=== PATIENT | female | born 1965 | race Caucasian/White ===

== ENCOUNTER 2016-10-06 09:51 | Emergency (ER) | payer OTHER ==
[2016-10-06 09:56] VITALS: BP 138/90; PULSE 95; TEMP 98.1; BMI 26.6
[2016-10-06] MEDS ORDERED: IBUPROFEN 400 MG TABLET (FP) PO ONE ×2 (11:25→11:27)
--- NOTE | 2016-10-06 11:31 | PDOC ---
History of Present Illness - General Chief Complaint: Cold Symptoms Stated Complaint: SORE THROAT CHEST PAIN Time Seen by Provider: 10/06/16 11:12 History Source: Patient - History of Present Illness Timing/Duration: reports: other Severity: reports: moderate Associated Symptoms: reports: cough, earache, fever/chills, headache, sore throat. denies: facial pain, lightheadedness, muscle aches, nasal congestion, nasal drainage, shortness of breath, wheezing Past History - Past Medical History Allergies/Adverse Reactions: Allergies Allergy/AdvReac Type Severity Reaction Status Date / Time No Known Allergies Allergy Verified 10/06/16 09:56 Home Medications: Ambulatory Orders Cyclobenzaprine HCl [Flexeril -] 10 mg PO TID #14 tablet 07/11/16 Nitrofurantoin Monohyd/M-Cryst [Macrobid -] 100 mg PO BID #14 capsule 07/14/16 Anemia: No Asthma: No Cancer: No COPD: No Dementia: No Diabetes: No Disorders: Yes (kidney stone, pyelonephritis 10/17) HTN: No Suicide Attempt (Hx): No Seizures: No Thyroid Disease: No - Psycho/Social/Smoking Cessation Hx Anxiety: No Suicidal Ideation: No Smoking Status: No Smoking History: Never smoked Have you smoked in the past 12 months: No Number of Cigarettes Smoked Daily: 0 Information on smoking cessation initiated: No Hx Alcohol Use: No Drug/Substance Use Hx: No Substance Use Type: None Hx Substance Use Treatment: No Review of Systems - Review of Systems Constitutional: Yes: Malaise. No: Chills, Fever HEENTM: Yes: Ear Pain, Throat Pain Respiratory: Yes: Cough. No: Shortness of Breath, Hemoptysis ABD/GI: No: Nausea, Vomiting Musculoskeletal: No: Neck Pain Neurological: Yes: Headache. No: Dizziness *Physical Exam - Vital Signs Last Vital Signs Temp Pulse Resp BP Pulse Ox 98.1 F 95 H 18 138/90 98 10/06/16 09:53 10/06/16 09:53 10/06/16 09:53 10/06/16 09:53 10/06/16 09:53 - Physical Exam Comments: 10/06/16 11:30 appears uncomfortable General Appearance: Yes: Appropriately Dressed HEENT: positive: Normal ENT Inspection, Normal Voice, TMs Normal, Pharynx Normal. negative: Scleral Icterus (R), Scleral Icterus (L) Neck: positive: Supple. negative: Lymphadenopathy (R), Lymphadenopathy (L) Respiratory/Chest: positive: Lungs Clear, Normal Breath Sounds. negative: Respiratory Distress Cardiovascular: positive: Regular Rate, S1, S2 Integumentary: positive: Dry Neurologic: positive: Fully Oriented, Alert, Normal Mood/Affect Medical Decision Making - Medical Decision Making 10/06/16 11:26 51-year-old female, denies any past medical history, here with non-productive cough with pleuritic CP, headache, sore throat and right ear pain 4 days. No neck stiffness, dizziness, photophobia, f/c or sob. Taking tylenol and "allergy medication" otc with no relief. States her grand-daughter has similar symptoms at home see exam URI M/l viral Pt stable but appears uncomfortable w/ + R submandibular lymphadenopathy, exam otherwise unremarkable -dc w/ supportive treatment 10/06/16 11:30 *DC/Admit/Observation/Transfer Diagnosis at time of Disposition: URI (upper respiratory infection) Qualifiers: URI type: unspecified viral URI Qualified Code(s): J06.9 - Acute upper respiratory infection, unspecified; B97.89 - Other viral agents as the cause of diseases classified elsewhere - Discharge Dispostion Disposition: HOME Condition at time of disposition: Stable - Patient Instructions Printed Discharge Instructions: DI for Viral Upper Respiratory Infection -- Adult Additional Instructions: Rest, drink plenty of fluids and take over the counter medications as needed for symptoms Print Language: SINHALA - Post Discharge Activity Work/School Note: Back to Work
--- NOTE | 2016-10-09 15:11 | EKG ---
Test Reason : Blood Pressure : / mmHG Vent. Rate : 089 BPM Atrial Rate : 089 BPM P-R Int : 138 ms QRS Dur : 078 ms QT Int : 356 ms P-R-T Axes : 052 043 042 degrees QTc Int : 433 ms NORMAL SINUS RHYTHM NORMAL ECG NO PREVIOUS ECGS AVAILABLE Confirmed by DAHLIA JAMES MD ([id number]) on 10/09/2016 3:10:50 PM Referred By: Confirmed By:DAHLIA JAMES MD
== END 2016-10-06 11:35 | disposition home or self-care (01) ==
LOC: JERFT 09:51
DX: J06.9 Acute upper respiratory infection, unspecified (principal); B97.89 Other viral agents as the cause of diseases classified elsewhere
CPT/HCPCS: 93005; 93010; 99281-25

== ENCOUNTER 2018-05-14 09:14 | Emergency (ER) | payer OTHER ==
[2018-05-14 09:29] VITALS: BMI 26.4
--- NOTE | 2018-05-14 09:43 | PDOC ---
History of Present Illness - General Chief Complaint: Pain, Acute Stated Complaint: LT FLANK PAIN Time Seen by Provider: 05/14/18 09:39 - History of Present Illness Initial Comments: 05/14/18 11:18 The patient is a 53 year old female with a history of Kidney Stones, pyelonephritis who presents for evaluation of left sided flank pain. The patient reports worsening crampy left sided flank pain over the past 10 days. The patient was evaluated by her primary care provider and was told that her pain was musculoskeletal in nature. However, she reports persistent pain prompting her presentation to the ED for further evaluation. She otherwise denies fevers, chills, SOB, chest pain, nausea, vomiting, abdominal pain, pain with urination, or changes with urination or bowel movements. Past History - Past Medical History Allergies/Adverse Reactions: Allergies Allergy/AdvReac Type Severity Reaction Status Date / Time No Known Allergies Allergy Verified 05/14/18 09:25 Home Medications: Ambulatory Orders Cholecalciferol (Vitamin D3) [Vitamin D3] 50,000 unit PO ASDIR 05/14/18 Naproxen [Naprosyn -] 500 mg PO BID #14 tablet 05/14/18 Simvastatin [Zocor -] 20 mg PO HS 05/14/18 Anemia: No Asthma: No Cancer: No COPD: No Dementia: No Diabetes: No Disorders: Yes (kidney stone, pyelonephritis 10/17) HTN: No Seizures: No Thyroid Disease: No - Suicide/Smoking/Psychosocial Hx Smoking Status: No Smoking History: Never smoked Have you smoked in the past 12 months: No Number of Cigarettes Smoked Daily: 0 Hx Alcohol Use: No Drug/Substance Use Hx: No Substance Use Type: None Hx Substance Use Treatment: No Review of Systems - Review of Systems Comments:: 05/14/18 11:25 Constitutional: No fevers, chills, fatigue, malaise HEENT: No Rhinorrhea, nasal congestion, visual changes Cardiovascular: No chest pain, syncope, palpitations, lightheadedness Respiratory: No Cough, SOB, Hemoptysis, Gastrointestinal: No Abdominal pain, Nausea, Vomiting, Constipation, Diarrhea, Melena Genitourinary: Left flank pain. No Dysuria, Frequency, Urgency, Hesitancy, Hematuria, Musculoskeletal: No Myalgia, arthralgia Skin: No rashes, itching, bruising, pallor Neurologic: No Headache, Dizziness, Numbness, Weakness, or Tingling Psychiatric: No Hallucinations. No SI or HI *Physical Exam - Vital Signs Last Vital Signs Temp Pulse Resp BP Pulse Ox 98.5 F 83 19 150/92 97 05/14/18 09:26 05/14/18 09:26 05/14/18 09:26 05/14/18 09:26 05/14/18 09:26 - Physical Exam Comments: 05/14/18 11:25 General Appearance: Nourished. No Apparent Distress HEENT: No Pharyngeal Erythema, Tonsillar Exudate, Tonsillar Erythema Neck: No Cervical Lymphadenopathy Respiratory/Chest: Lungs Clear, Normal Breath Sounds. No Crackles, Rales, Rhonchi, Wheezing Cardiovascular: Regular Rhythm, Regular Rate. No Murmur, Gallops, Rubs Gastrointestinal/Abdominal: Normal Bowel Sounds, Soft. No Guarding, Rebound, Tenderness Musculoskeletal: Left CVA Tenderness, No Right CVA Tenderness Extremity: Normal Capillary Refill Integumentary: Normal Color, Dry, Warm Neurologic: Fully Oriented, Alert, Normal Mood/Affect, Normal Response, ED Treatment Course - LABORATORY CBC & Chemistry Diagram: 05/14/18 10:12 05/14/18 10:12 Medical Decision Making - Medical Decision Making 05/14/18 11:26 The patient is a 53 year old female with a history of Kidney Stones, pyelonephritis who presents for evaluation of left sided flank pain. Differential includes but is not limited to: UTI, pyelonephritis, kidney stones , infectious, metabolic derangement. Given the patient's history and physical exam, we will obtain a cbc, cmp, ua, renal ct to evaluate further for possible etiologies. We will treat in the meantime with iv fluids and toradol and continue to monitor and reassess while here in the ED. 05/14/18 12:25 CBC, cmp, ua are unremarkable. renal ct is unremarkable as read by our radiologist. It is likely the patient's symptoms are musculoskeletal in nature. We are comfortable discharging the patient home with primary care provider follow up. We discussed the results, plan, and return precautions with the patient who voiced understanding and is agreeable with the plan. *DC/Admit/Observation/Transfer Diagnosis at time of Disposition: Back pain Qualifiers: Back pain location: low back pain Chronicity: unspecified Back pain laterality : left Sciatica presence: unspecified whether sciatica present Qualified Code(s) : M54.5 - Low back pain - Discharge Dispostion Disposition: HOME Condition at time of disposition: Stable Decision to Admit order: No - Prescriptions Prescriptions: Naproxen [Naprosyn -] 500 mg PO BID #14 tablet - Referrals Referrals: Jose M Webb MD [Primary Care Provider] - - Patient Instructions Printed Discharge Instructions: DI for Low Back Pain Additional Instructions: Please return to the ER if you experience concerning or worsening symptoms including worsening pain, fevers, or vomiting. Your lab results and CT scan were normal here in the ER. We have sent a prescription to your pharmacy for medication to help manage your pain that you may take twice a day as needed. Please call to schedule a follow up appointment with your primary care provider within 2-3 days to discuss your ER visit and further management of your symptoms. - Post Discharge Activity
[2018-05-14] MEDS ORDERED: SODIUM CHLORIDE 1,000 ML IV STA (09:52)
[2018-05-14] MEDS ORDERED: KETOROLAC TROMETHAMINE 30 MG/1 ML VIAL IVPUSH ONE (10:03)
--- NOTE | 2018-05-14 10:09 | PDOC ---
Attending Attestation - Resident Resident Name: Philipp Gupta - ED Attending Attestation I have performed the following: I have examined & evaluated the patient, The case was reviewed & discussed with the resident, I agree w/resident's findings & plan, Exceptions are as noted - HPI HPI: 05/14/18 10:04 53yo F x kidney stones, pyelonephritis presents to the ED with 10 days of L sided flank pain. Describes pain as crampy, is concerned she is having recurrent kidney stone. Saw her PMD, diagnosed with MSK pain. Denies trauma or heavy lifting. Denies N/V, fevers, chills, dysuria, frequency, urgency. Denies CP, SOB. Denies focal weakness or numbness. Denies LE edema. Denies recent travel. Tried ibuprofen with minimal relief. - Physicial Exam PE: 05/14/18 10:07 GENERAL: Awake, alert, and fully oriented, in no acute distress HEAD: No signs of trauma EYES: PERRLA, EOMI, sclera anicteric, conjunctiva clear ENT: Auricles normal inspection, hearing grossly normal, nares patent, oropharynx clear without exudates. Moist mucosa NECK: Normal ROM, supple, no lymphadenopathy, JVD, or masses LUNGS: Breath sounds equal, clear to auscultation bilaterally. No wheezes, and no crackles HEART: Regular rate and rhythm, normal S1 and S2, no murmurs, rubs or gallops ABDOMEN: Soft, nontender, normoactive bowel sounds. No guarding, no rebound. No masses. +L CVAT EXTREMITIES: Normal range of motion, no edema. No clubbing or cyanosis. No cords , erythema, or tenderness BACK: No midline spinal tenderness in cervical/thoracic/lumbar region. +L lumbar paraspinal ttp NEUROLOGICAL: Normal speech, cranial nerves intact, negative pronator drift, 5/ 5 strength in all 4 extremities, normal sensation to light touch in all 4 extremities, normal cerebellar exam, normal gait, normal reflexes and tone SKIN: Warm, Dry, normal turgor, no rashes or lesions noted. - Medical Decision Making 05/14/18 10:08 53yo F presents with 10 days of L sided flank pain. Vitals with elevated BP to 150s systolic, otherwise wnl. Exam w LCVAT. DDx includes but not limited to renal colic vs pyelonephritis vs MSK pain. Plan -UA -labs -consider CTAP -reassess 05/14/18 12:30 Labs, UA, CTAP negative Likely MSK strain Pt feels better after toradol and IV tylenol Advised to f/u with Dr. Webb Requests DC home I discussed the physical exam findings, ancillary test results and final diagnoses with the patient. I answered all of the patient's questions. The patient was satisfied with the care received and felt comfortable with the discharge plan and treatment plan. The patient will call their primary care physician within 24 hours to arrange follow-up and will return to the Emergency Department with any new, persistent or worsening symptoms.
[2018-05-14] MEDS ORDERED: KETOROLAC TROMETHAMINE 30 MG/1 ML VIAL ONE (10:14)
[2018-05-14 10:21] LABS: BASO % 0.7 % (0-2.0); HEMATOCRIT 41.7 % (32.4-45.2); HEMOGLOBIN 14.2 GM/dL (10.7-15.3); LYMPH % 31.6 % (8-40); MCH 29.9 pg (25.7-33.7); MEAN PLT VOLUME 7.8 fl (7.5-11.1); MONO % 7.2 % (3.8-10.2); NEUT % 57.5 % (42.8-82.8); PLATELET COUNT 314 K/MM3 (134-434); RBC 4.73 M/mm3 (3.60-5.2); RDW 13.3 % (11.6-15.6); WHITE BLOOD COUNT 7.1 K/mm3 (4.0-10.0)
[2018-05-14 10:22] LABS: URINE APPEARANCE CLEAR; URINE BILIRUBIN NEGATIVE (<2.0 mg/dL); URINE COLOR LTYELLOW; URINE GLUCOSE (UA) NEGATIVE (NEGATIVE); URINE KETONE NEGATIVE (NEGATIVE); URINE LEUK ESTERASE NEGATIVE (NEGATIVE); URINE NITRITE NEGATIVE (NEGATIVE); URINE PROTEIN NEGATIVE (NEGATIVE); URINE UROBILINOGEN NEGATIVE mg/dL (0.2-1.0)
[2018-05-14 10:41] LABS: ALBUMIN 4.6 g/dl (3.4-5.0); ANION GAP 7 (8-16); BILIRUBIN,TOTAL 0.6 mg/dL (0.2-1.0); BLOOD UREA NITROGEN 14 mg/dL (7-18); CALCIUM 9.4 mg/dL (8.5-10.1); CHLORIDE 108 mmol/L (98-107); CO2 29 mmol/L (21-32); CREATININE 0.7 mg/dL (0.55-1.02); GLUCOSE,RANDOM 91 mg/dL (74-106); POTASSIUM 4.3 mmol/L (3.5-5.1); SGOT/AST 14 U/L (15-37); SGPT/ALT 29 U/L (12-78); SODIUM 144 mmol/L (136-145); TOT PROT 7.8 g/dl (6.4-8.2)
[2018-05-14 10:43] LABS: ALK PHOS 96 U/L (45-117)
[2018-05-14] MEDS ORDERED: ACETAMINOPHEN 1000 MG/100 ML VIAL (NON FORMULARY) IVPB ONE (12:08)
[2018-05-14] MEDS ORDERED: ACETAMINOPHEN INJECTION 100 ML IVPB ONE (12:27)
[2018-05-14 12:46] VITALS: BP 138/76; PULSE 74; TEMP 98.6
== END 2018-05-14 12:46 | disposition home or self-care (01) ==
LOC: JER 09:14
PROC: 3E033NZ Introduction of Analgesics, Hypnotics, Sedatives into Peripheral Vein, Percutaneous Approach (ICD-10-PCS; principal; 2018-05-14)
PROC: 3E0333Z Introduction of Anti-inflammatory into Peripheral Vein, Percutaneous Approach (ICD-10-PCS; 2018-05-14)
PROC: 3E0337Z Introduction of Electrolytic and Water Balance Substance into Peripheral Vein, Percutaneous Approach (ICD-10-PCS; 2018-05-14)
DX: M54.5 Low back pain (principal); Z87.442 Personal history of urinary calculi
CPT/HCPCS: 36415; 74176; 80053; 81003; 85025; 87086; 87186; 99283-25; J0131; J7030

== ENCOUNTER 2022-02-11 12:01 | Emergency (ER) | payer OTHER ==
[2022-02-11 12:31] VITALS: BP 164/92; PULSE 101; TEMP 98.7; BMI 28.1
[2022-02-11] MEDS ORDERED: KETOROLAC TROMETHAMINE 30 MG/1 ML VIAL IM ONE (13:02)
[2022-02-11] MEDS ORDERED: METHOCARBAMOL 500 MG TABLET PO ONE (13:02)
[2022-02-11] MEDS ORDERED: DEXAMETHASONE LIQUID 0.5 MG/5 ML PO ONE (13:02)
[2022-02-11] MEDS ORDERED: DEXAMETHASONE SOD PHOSPHATE 10 MG/1 ML VIAL ONE (13:13)
[2022-02-11] MEDS ORDERED: METHOCARBAMOL 500 MG TABLET ONE (13:13)
[2022-02-11] MEDS ORDERED: KETOROLAC TROMETHAMINE 30 MG/1 ML VIAL ONE (13:13)
[2022-02-11 13:39] LABS: URINE APPEARANCE CLEAR; URINE BILIRUBIN NEGATIVE (NEGATIVE); URINE COLOR YELLOW; URINE GLUCOSE (UA) NEGATIVE (NEGATIVE); URINE KETONE TRACE (NEGATIVE); URINE LEUK ESTERASE NEGATIVE (NEGATIVE); URINE NITRITE NEGATIVE (NEGATIVE); URINE PROTEIN NEGATIVE (NEGATIVE)
== END 2022-02-11 14:39 | disposition home or self-care (01) ==
LOC: JER 12:01 → JERFT 12:01
PROC: 3E023GC Introduction of Other Therapeutic Substance into Muscle, Percutaneous Approach (ICD-10-PCS; principal; 2022-02-11)
DX: M54.41 Lumbago with sciatica, right side (principal)
CPT/HCPCS: 81003; 87086; 87186; 96372; 99284-25

== ENCOUNTER 2023-05-04 19:01 | Emergency (ER) | payer OTHER ==
[2023-05-04 19:13] VITALS: BP 162/87; PULSE 71; RESP 16; TEMP 98.1; BMI 26.4
[2023-05-04] MEDS ORDERED: ACETAMINOPHEN 1000 MG/100 ML BAG IVPB ONE (20:51)
[2023-05-04] MEDS ORDERED: SODIUM CHLORIDE 0.9% 500 ML INFUS.BAG IV ONE (20:51)
[2023-05-04] MEDS ORDERED: ONDANSETRON 4 MG/2 ML VIAL IVPUSH ONE (20:51)
[2023-05-04] MEDS ORDERED: ACETAMINOPHEN INJECTION 100 ML IVPB ONE (21:01)
[2023-05-04] MEDS ORDERED: ONDANSETRON 4 MG/2 ML VIAL ONE (21:01)
[2023-05-04 21:09] LABS: BASO % 0.6 % (0-2.0); HEMATOCRIT 40.6 % (32.4-45.2); HEMOGLOBIN 13.7 GM/dL (10.7-15.3); LYMPH % 31.2 % (8-40); MCHC 33.9 g/dl (32.0-36.0); MEAN CELL VOLUME 88.6 fl (80-96); MEAN PLT VOLUME 7.6 fl (7.5-11.1); NEUT % 62.2 % (42.8-82.8); PLATELET COUNT 347 10^3/uL (134-434); RBC 4.58 M/mm3 (3.60-5.2); WHITE BLOOD COUNT 11.3 K/mm3 (4.0-10.0)
[2023-05-04 21:32] LABS: EPI CELLS 13 /uL (0-25.1); HYALINE CASTS 0 /uL (0-3.1); URINE APPEARANCE CLEAR; URINE BACTERIA >9,000 /uL (0-1359); URINE BILIRUBIN NEGATIVE (NEGATIVE); URINE COLOR YELLOW; URINE GLUCOSE (UA) NEGATIVE (NEGATIVE); URINE KETONE NEGATIVE (NEGATIVE); URINE LEUK ESTERASE NEGATIVE (NEGATIVE); URINE NITRITE POSITIVE (NEGATIVE); URINE PROTEIN NEGATIVE (NEGATIVE); URINE RBC 22 /uL (0-23.9); URINE WBC 12 /uL (0-25.8)
[2023-05-04 21:57] LABS: POTASSIUM 4.1 mmol/L (3.5-5.1)
[2023-05-04 22:01] LABS: ALBUMIN 3.8 g/dl (3.4-5.0); BLOOD UREA NITROGEN 19.8 mg/dL (7-18); MAGNESIUM 2.2 mg/dL (1.8-2.4)
[2023-05-04] MEDS ORDERED: CEFTRIAXONE 1 GM in DEXTROSE 5%-WATER - 100 ML IVPB ONE (22:02)
[2023-05-04 22:04] LABS: CREATININE 0.8 mg/dL (0.55-1.3)
[2023-05-04] MEDS ORDERED: CEFTRIAXONE 1 GM/50 ML BAG ONE (22:04)
[2023-05-04 22:05] LABS: BILIRUBIN,TOTAL 0.4 mg/dL (0.2-1)
[2023-05-04 22:06] LABS: TOT PROT 7.1 g/dl (6.4-8.2)
== END 2023-05-04 22:28 | disposition home or self-care (01) ==
LOC: JER 19:01
PROC: 3E03329 Introduction of Other Anti-infective into Peripheral Vein, Percutaneous Approach (ICD-10-PCS; principal; 2023-05-04)
PROC: 3E033NZ Introduction of Analgesics, Hypnotics, Sedatives into Peripheral Vein, Percutaneous Approach (ICD-10-PCS; 2023-05-04)
PROC: 3E033GC Introduction of Other Therapeutic Substance into Peripheral Vein, Percutaneous Approach (ICD-10-PCS; 2023-05-04)
DX: R42 Dizziness and giddiness (principal); R07.9 Chest pain, unspecified; N30.01 Acute cystitis with hematuria
CPT/HCPCS: 36415; 80053; 81003; 83690; 83735; 84443; 84484; 85025; 87086; 87186; 93005; 93010; 99284-25